=== PATIENT | male | born 1975 | race Caucasian/White ===

== ENCOUNTER 2017-09-03 20:27 | Emergency (ER) | payer OTHER ==
[~2017-09-03] VITALS: Ht 170.2 cm; Wt 94.0 kg
[~2017-09-03 20:27] MED LIST: ADVAIR 250/501 DISK IH; BENTYL10 MG PO; CLEOCIN300 MG PO; HYDROCODON-ACE1 EAC7 PO; MOTRIN600 MG PO; NORVASC5 MG PO; PRILOSEC40 MG PO; VENTOLIN HFA18 GM IH; ZOFRAN4 MG PO; ZOLOFT50 MG PO
[2017-09-03 21:20] LABS: HEMATOCRIT 43.3 % (38.0-50.0); HEMOGLOBIN 14.9 G/DL (12.5-16.6); MCH 29.4 PG (29.0-34.0); MCHC 34.4 G/DL (30.0-36.0); MCV 85.4 FL (86-99); PLATELET COUNT 248 K/uL (156-360); RBC DIS.WIDTH-CV 12.3 % (11.8-14.6); RBC DIS.WIDTH-SD 38.2 % (39-53); RED BLOOD COUNT 5.07 M/uL (4.00-5.50); WHITE BLOOD COUNT 9.3 K/uL (4.1-10.2)
[2017-09-03 21:30] LABS: APPEARANCE CLOUDY ((CLEAR)); BILIRUBIN NEGATIVE; BLOOD SMALL; COLOR YELLOW ((YELLOW)); GLUCOSE (STRIP) NEGATIVE; KETONES NEGATIVE; LEUKOCYTES NEGATIVE; NITRITE NEGATIVE; PROTEIN (STRIP) NEGATIVE; SPECIFIC GRAVITY 1.018 (1.000-1.030)
[2017-09-03 21:33] LABS: CHLORIDE 108 mEq/L (99-109); POTASSIUM 3.8 mEq/L (3.7-5.4); SODIUM 141 mEq/L (136-147)
[2017-09-03 21:34] LABS: GLUCOSE 89 mg/dL (70-99)
[2017-09-03 21:38] LABS: CREATININE 0.8 mg/dL (0.6-1.3); GFR ESTIMATE (CALCULATED) > 59 mL/min/ (58.99-99999)
[2017-09-03 21:39] LABS: UREA NITROGEN (BUN) 13 mg/dL (9-23)
[2017-09-03 21:44] LABS: TROP-I INTERPRETATION NEGATIVE; TROPONIN-I < 0.01 ng/mL (0.0-0.30)
[2017-09-03 21:51] LABS: AMORPHOUS PHOSPHATE CRYSTALS 2+; BACTERIA NONE SEEN /HPF; EPITHELIAL CELLS NONE SEEN /HPF; MUCUS NONE SEEN /LPF; RED BLOOD CELLS RARE /HPF (0-5); UCUL ADDED? NO; WHITE BLOOD CELLS RARE /HPF (0-5)
[2017-09-03 23:31] VITALS: BP 126/87
== END 2017-09-03 23:39 | disposition home or self-care (01) ==
LOC: EME → EDBD 20:27 → EME 20:27
PROVIDERS: Emergency Medicine Emergency Medical Services
DX: R07.89 Other chest pain (principal); R10.9 Unspecified abdominal pain; R31.9 Hematuria, unspecified; R91.8 Other nonspecific abnormal finding of lung field; J45.909 Unspecified asthma, uncomplicated; I10 Essential (primary) hypertension; F17.200 Nicotine dependence, unspecified, uncomplicated; Z82.49 Family history of ischemic heart disease and other diseases of the circulatory system
CPT/HCPCS: 71046; 71275; 74177; 80048; 80048 91; 81003; 84484; 85027; 93005; 99281; 99285; J2270

== ENCOUNTER 2017-12-08 22:15 | Emergency (ER) | payer SELFPAY ==
[~2017-12-08] VITALS: Ht 170.2 cm; Wt 92.5 kg
[2017-12-09] MEDS ORDERED: SYMBICORT60 INHALAT IH (00:38)
[2017-12-09] MEDS ORDERED: PREDNISONE20 MG PO (00:38)
[2017-12-09 01:00] VITALS: BP 138/90
== END 2017-12-09 01:01 | disposition home or self-care (01) ==
LOC: EME 22:15
DX: J44.1 Chronic obstructive pulmonary disease with (acute) exacerbation (principal); F17.210 Nicotine dependence, cigarettes, uncomplicated; I10 Essential (primary) hypertension; Z91.120 Patient's intentional underdosing of medication regimen due to financial hardship; Z82.49 Family history of ischemic heart disease and other diseases of the circulatory system
CPT/HCPCS: 71046; 99281; 99284; J7512